=== PATIENT | female | born 2005 | race Caucasian/White ===

== ENCOUNTER 2024-01-10 14:38 | Emergency (ER) | payer OTHER ==
[~2024-01-10] VITALS: Ht 162.6 cm; Wt 50.0 kg
[2024-01-10 14:44] VITALS: TEMP 98.3
[2024-01-10 15:37] LABS: PH 5.5 (5.0-8.5); URINE APPEARANCE CLEAR (CLEAR/HAZY); URINE BLOOD 2+ (NEGATIVE); URINE COLOR YELLOW (YELLOW); URINE GLUCOSE NEGATIVE (NEGATIVE); URINE KETONE NEGATIVE (NEGATIVE); URINE NITRATE NEGATIVE (NEGATIVE); URINE PROTEIN(semi-quant) NEGATIVE (NEGATIVE); URINE UROBILINOGEN 0.2 E.U/dL (0.2-1.0)
[2024-01-10 15:55] LABS: COLLECTION METHOD CLEAN CATCH
[2024-01-10] MEDS ORDERED: Ketorolac 15 MG/ML VIAL IV ONE (16:45)
[2024-01-10] MEDS ORDERED: Ondansetron 4 MG/2 ML VIAL IV ONE (16:45)
[2024-01-10] MEDS ORDERED: NS 1,000 ML IV ONE (16:45)
[2024-01-10 17:01] LABS: BASO # 0.1 K/mm3 (0.0-0.2); BASO % 0.5 % (0.0-2.0); EOS % 0.3 % (0.0-4.0); GRAN # 13.5 K/mm3 (1.4-6.5); GRAN % 85.3 % (42.2-75.2); HEMATOCRIT 39.8 % (35.0-45.0); HEMOGLOBIN 13.8 g/dl (12.0-15.0); LYMPH # 1.4 K/mm3 (1.2-3.4); LYMPH % 8.6 % (20.0-51.0); MEAN CELL VOLUME 86 fl (80.0-95.0); MEAN CORPUSCULAR HEMOGLOBIN 30 pg (26-32); MEAN CORPUSCULAR HGB CONC 35 g/dl (33.0-37.0); MEAN PLATELET VOLUME 11.3 fl (7.4-10.4); MONO # 0.8 K/mm3 (0.1-0.6); MONO % 4.9 % (1.7-9.3); PLATELET COUNT 214 K/mm3 (130-400); RED BLOOD COUNT 4.61 M/mm3 (4.10-5.30); REDCELL DISTRIBUTION WIDTH-CV 12.7 % (11.5-14.5)
[2024-01-10 17:23] LABS: ALBUMIN 4.6 g/dL (3.5-5.0); BILIRUBIN,TOTAL 0.9 mg/dL (0.2-1.2); CALCIUM 9.5 mg/dL (8.4-10.2); POTASSIUM 3.5 mEq/L (3.5-4.5); TOTAL PROTEIN 7.4 g/dl (6.2-8.1)
[2024-01-10] MEDS ORDERED: Iohexol 300 - 100 ML VIAL IV ONE (17:27)
[2024-01-10] MEDS ORDERED: NS 100 ML IV ONE (17:27)
[2024-01-10] MEDS ORDERED: Morphine 4 MG/ML VIAL IV ONE (17:30)
[2024-01-10] MEDS ORDERED: droPERidol 2.5 MG/ML 2 ML VIAL IV ONE (18:00)
[2024-01-10] MEDS ORDERED: NORCO 325 MG-51 TAB PO (18:58)
[2024-01-10] MEDS ORDERED: FLOMAX 0.40.4 MG/CAP PO (19:01)
[2024-01-10 19:03] VITALS: BP 120/76; PULSE 74
[2024-01-11] MEDS ORDERED: NORCO 325 MG-51 TAB PO (14:42)
[2024-01-11] MEDS ORDERED: FLOMAX 0.40.4 MG/CAP PO (14:42)
== END 2024-01-10 19:14 | disposition home or self-care (01) ==
LOC: COL.ER 14:38
PROVIDERS: Family Medicine; Physician Assistant
DX: N13.2 Hydronephrosis with renal and ureteral calculous obstruction (principal)
CPT/HCPCS: J1790; J1885; J2270; J2405; J7030; Q9967

== ENCOUNTER 2024-01-24 18:29 | Emergency (ER) | payer OTHER ==
[~2024-01-24] VITALS: Ht 162.6 cm; Wt 50.8 kg
[~2024-01-24 18:29] MED LIST: FLOMAX 0.40.4 MG/CAP PO; NORCO 325 MG-51 TAB PO
[2024-01-24] MEDS ORDERED: Pantoprazole 40 MG in NS 10 ML IV ONE (18:45)
[2024-01-24] MEDS ORDERED: Folic Acid 1 MG,Thiamine 200 MG in NS 1,000 ML IV ONE (18:45)
[2024-01-24] MEDS ORDERED: LR 1,000 ML IV ONE (18:45)
[2024-01-24 18:48] LABS: BASO # 0.1 K/mm3 (0.0-0.2); BASO % 0.7 % (0.0-2.0); EOS % 0.2 % (0.0-4.0); GRAN # 5.5 K/mm3 (1.4-6.5); GRAN % 59.7 % (42.2-75.2); HEMATOCRIT 38.6 % (35.0-45.0); HEMOGLOBIN 13.6 g/dl (12.0-15.0); LYMPH # 3.1 K/mm3 (1.2-3.4); LYMPH % 33.8 % (20.0-51.0); MEAN CELL VOLUME 84 fl (80.0-95.0); MEAN CORPUSCULAR HEMOGLOBIN 30 pg (26-32); MEAN CORPUSCULAR HGB CONC 35 g/dl (33.0-37.0); MEAN PLATELET VOLUME 9.8 fl (7.4-10.4); MONO # 0.5 K/mm3 (0.1-0.6); MONO % 5.4 % (1.7-9.3); PLATELET COUNT 351 K/mm3 (130-400); RED BLOOD COUNT 4.58 M/mm3 (4.10-5.30); REDCELL DISTRIBUTION WIDTH-CV 12.2 % (11.5-14.5)
[2024-01-24 18:51] LABS: PROTHROMBIN TIME 11.1 SECONDS (9.7-12.8)
[2024-01-24 19:09] LABS: ALBUMIN 4.3 g/dL (3.5-5.0); BILIRUBIN,TOTAL 0.6 mg/dL (0.2-1.2); CALCIUM 8.9 mg/dL (8.4-10.2); CREATININE, serum 0.79 mg/dL (0.57-1.11); MAGNESIUM 2.1 mg/dL (1.6-2.6); TOTAL PROTEIN 7.5 g/dl (6.2-8.1)
[2024-01-24 19:13] LABS: POTASSIUM 2.7 mEq/L (3.5-4.5)
[2024-01-24 22:41] VITALS: BP 104/62; PULSE 83; TEMP 98.2
== END 2024-01-24 22:41 | disposition home or self-care (01) ==
LOC: COL.ER 18:29
PROVIDERS: Emergency Medicine
DX: F10.129 Alcohol abuse with intoxication, unspecified (principal); Y90.8 Blood alcohol level of 240 mg/100 ml or more
CPT/HCPCS: J2470; J3411; J7030; J7120